=== PATIENT | male | born 1935 | race Caucasian/White ===

== ENCOUNTER → 2016-10-07 | Outpatient (CLI) | payer MEDICARE, OTHER ==
[~2016-10-07] MED LIST: AMBISOME50 MG IV; ASPI325T6 PO; ASPIRIN 32325 MG/TA1 PO; ASPIRIN 32325 MG/TAB PO; ASPIRIN 81M81 MG/TA2 PO; AVODART 0.5MG0.5 MG PO; COLACE 100100 MG/CAP PO; ERAXIS100 MG IV; FERROUS SU325 MG/TAB PO; FISH OIL1000 MG PO; FLOMAX 0.40.4 MG/CAP PO; FLORAJEN A20 Billion PO; FOLIC ACID0.4 MG PO; INVANZ INJ1 G/VIAL IV; LIPITOR 10MG10 MG PO; MASON NATURAL1200 MG PO; METAMUCIL3.4 GM/DOS PO; MULTI VITAMINS1 TAB PO; NORCO 325 MG-7.1 TAB PO; ROXICODONE 55 MG/TAB PO; SENNA-LAX8.6 MG PO; SENOKOT S 50 MG1 TAB PO; ULTRAM 50MG TAB50 MG PO; VITAMIN C500 MG PO; ZYLOPRIM 300MG300 MG PO
[2016-10-07 10:50] LABS: CREATININE, serum 0.99 mg/dL (0.66-1.25)
[2016-10-07 12:44] LABS: 1 HR GLUCOSE 112 mg/dL (90-160); 1/2 HR GLUCOSE 131 mg/dL (100-170)
[2016-10-07 12:45] LABS: 1 HR URINE GLUCOSE NEGATIVE; 1/2 HOUR UR GLUCOSE NEGATIVE; 2 HR URINE GLUCOSE NEGATIVE; FASTING URINE GLUCOSE NEGATIVE
[2016-10-07 13:47] LABS: 3 HR URINE GLUCOSE NEGATIVE
[2016-10-11 11:17] LABS: ALBUMIN FRACTION 4.1 g/dL (2.6-4.5); ALBUMIN PERCENTAGE 62.7 % (48.7-61.8); ALPHA 1 FRACTION 0.3 g/dL (0.3-0.5); ALPHA 1 PERCENTAGE 4.4 % (3.4-8.3); ALPHA 2 FRACTION 0.7 g/dL (0.6-1.2); ALPHA 2 PERCENTAGE 11.3 % (8.4-17.5); BETA 1 FRACTION 0.3 g/dL (0.4-0.6); BETA 2 FRACTION 0.3 g/dL (0.2-0.5); BETA 2 PERCENTAGE 4.3 % (3.8-7.7); GAMMA FRACTION 0.8 g/dL (0.4-1.7); GAMMA PERCENTAGE 12.3 % (8.1-23.0); MONOCLONAL 1 FRACTION 0.2 g/dL (()); SERUM PROTEIN TOTAL 6.5 g/dL (6.0-7.6)
== END ==
LOC: COL.LAB 07:47
PROVIDERS: Psychiatry & Neurology Neurology
DX: G62.9 Polyneuropathy, unspecified (principal)

== ENCOUNTER 2017-08-24 19:22 | Inpatient (IN) | payer MEDICARE, OTHER ==
[2017-08-24] VITALS (40 sets, daily range): BP systolic 101; BP diastolic 54; PULSE 79; TEMP 97.9; O2SAT 92–100
[~2017-08-24] VITALS: Ht 188 cm; Wt 120.0 kg
[2017-08-24] MEDS ORDERED: ASPIRIN 81M81 MG/TA2 PO (19:40)
[2017-08-24] MEDS ORDERED: LIPITOR 10MG10 MG PO (19:41)
[2017-08-24] MEDS ORDERED: ZYLOPRIM 300MG300 MG PO (19:41)
[2017-08-24] MEDS ORDERED: AVODART 0.5MG0.5 MG PO (19:42)
[2017-08-24] MEDS ORDERED: MULTIPLE VITAMI1 CAP PO (19:42)
[2017-08-24] MEDS ORDERED: FLOMAX 0.40.4 MG/CAP PO (19:42)
[2017-08-24] MEDS ORDERED: METAMUCIL3.4 GM/DOS PO (19:44)
[2017-08-24] MEDS ORDERED: MASON NATURAL1200 MG PO (19:44)
[2017-08-24] MEDS ORDERED: K-TAB10 PO (19:44)
[2017-08-24 19:48] LABS: BASO % 0.4 % (0.0-2.0); EOS % 0.2 % (0-4.0); GRAN # 7.7 (1.4-6.5); GRAN % 95.7 % (42.2-75.2); HEMATOCRIT 45.5 % (42.0-52.0); HEMOGLOBIN 16.3 g/dl (13.5-18.0); LYMPH # 0.2 (1.2-3.4); LYMPH % 1.9 % (20.0-51.0); MEAN CELL VOLUME 94 fl (80.0-100.0); MEAN CORPUSCULAR HEMOGLOBIN 34 pg (27.0-31.0); MEAN CORPUSCULAR HGB CONC 36 g/dl (33.0-37.0); MEAN PLATELET VOLUME 9.5 fl (7.4-10.4); MONO # 0.1 (0.1-0.6); MONO % 1.4 % (1.7-9.3); PLATELET COUNT 150 K/mm3 (130-400); RED BLOOD COUNT 4.83 M/mm3 (4.20-5.60); REDCELL DISTRIBUTION WIDTH-CV 13.2 % (11.5-14.5)
[2017-08-24 19:58] LABS: ALBUMIN 3.9 gm/dL (3.5-5.0); BILIRUBIN,TOTAL 4.6 mg/dL (0.0-1.0); CALCIUM 8.9 mg/dL (8.4-10.2); CREATININE, serum 0.98 mg/dL (0.66-1.25); TOTAL PROTEIN 7.1 gm/dL (6.4-8.2)
[2017-08-24 20:01] LABS: COLLECTION METHOD CLEAN CATCH
[2017-08-24 20:16] LABS: MUCOUS Present /lpf; PH 7 (5-8); SQUAMOUS EPITHELIAL None Seen /hpf; URINE APPEARANCE Hazy; URINE BACTERIA None Seen /hpf; URINE BILIRUBIN Negative (NEGATIVE); URINE BLOOD Negative (NEGATIVE); URINE COLOR Amber; URINE GLUCOSE Negative (NEGATIVE); URINE KETONE Negative (NEGATIVE); URINE LEUKOCYTE ESTERASE Negative (NEGATIVE); URINE NITRATE Negative (NEGATIVE); URINE PROTEIN(semi-quant) Negative (NEGATIVE); URINE RBC 0-2 /hpf
[2017-08-25] VITALS (1006 sets, daily range): BP systolic 97–125; BP diastolic 54–61; PULSE 46–55; TEMP 97–98.2; O2SAT 84–100
[2017-08-25 05:29] LABS: BASO % 0.2 % (0.0-2.0); GRAN # 15.2 (1.4-6.5); GRAN % 90.2 % (42.2-75.2); HEMATOCRIT 40.5 % (42.0-52.0); HEMOGLOBIN 14.1 g/dl (13.5-18.0); LYMPH # 0.7 (1.2-3.4); LYMPH % 4.3 % (20.0-51.0); MEAN CELL VOLUME 97 fl (80.0-100.0); MEAN CORPUSCULAR HEMOGLOBIN 34 pg (27.0-31.0); MEAN CORPUSCULAR HGB CONC 35 g/dl (33.0-37.0); MEAN PLATELET VOLUME 9.7 fl (7.4-10.4); MONO # 0.8 (0.1-0.6); MONO % 4.9 % (1.7-9.3); PLATELET COUNT 147 K/mm3 (130-400); RED BLOOD COUNT 4.19 M/mm3 (4.20-5.60); REDCELL DISTRIBUTION WIDTH-CV 13.7 % (11.5-14.5)
[2017-08-25 05:47] LABS: CALCIUM 7.9 mg/dL (8.4-10.2); CREATININE, serum 1.12 mg/dL (0.66-1.25); POTASSIUM 4.5 mmol/L (3.4-5.0)
[2017-08-26] VITALS (553 sets, daily range): BP systolic 122–128; BP diastolic 60–68; PULSE 55–64; TEMP 99; O2SAT 65–100
[2017-08-26 06:13] LABS: ALBUMIN 2.9 gm/dL (3.5-5.0); BILIRUBIN,TOTAL 6.5 mg/dL (0.0-1.0); CALCIUM 7.7 mg/dL (8.4-10.2); CREATININE, serum 1.14 mg/dL (0.66-1.25); MAGNESIUM 1.9 mg/dL (1.6-2.3); TOTAL PROTEIN 5.7 gm/dL (6.4-8.2)
[2017-08-26 06:15] LABS: MEAN CELL VOLUME 100 fl (80.0-100.0); MEAN CORPUSCULAR HEMOGLOBIN 34 pg (27.0-31.0); MEAN CORPUSCULAR HGB CONC 34 g/dl (33.0-37.0); MEAN PLATELET VOLUME 10.6 fl (7.4-10.4); PLATELET COUNT 129 K/mm3 (130-400); RED BLOOD COUNT 4.11 M/mm3 (4.20-5.60); REDCELL DISTRIBUTION WIDTH-CV 14.2 % (11.5-14.5)
[2017-08-26 08:14] LABS: BAND 2 % (0-10); EOSINOPHIL 2 % (0-4); LYMPHOCYTE 13 % (20.0-51.0); NEUTROPHILS 83 % (42.0-75.2); PLATELET ESTIMATE DECREASED (NORMAL)
[2017-08-26] MEDS ORDERED: K-DUR 10 MEQ T10 MEQ PO (10:20)
[2017-08-26] MEDS ORDERED: CEFTIN500 MG PO (10:22)
== END 2017-08-26 11:20 | disposition home or self-care (01) | DRG 871 ==
LOC: COL.ER 19:22 → ICU 20:25 → EDBEDREQ 21:30 → ICU 08-26 11:20
PROVIDERS: Emergency Medicine; Internal Medicine; Internal Medicine Gastroenterology; Nurse Practitioner
PROC: 0F798DZ Dilation of Common Bile Duct with Intraluminal Device, Via Natural or Artificial Opening Endoscopic (ICD-10-PCS; principal; 2017-08-25 13:00)
DX: A41.89 Other specified sepsis (principal); K83.1 Obstruction of bile duct; K83.0 Cholangitis; K31.5 Obstruction of duodenum; B96.1 Klebsiella pneumoniae [K. pneumoniae] as the cause of diseases classified elsewhere; N20.0 Calculus of kidney; Z87.891 Personal history of nicotine dependence; K26.9 Duodenal ulcer, unspecified as acute or chronic, without hemorrhage or perforation
CPT/HCPCS: 99222-AI; 99239; C1726; C1769; J1885; J2405; J2543; J2704; J7030; J7040; Q9967

== ENCOUNTER → 2017-08-29 | Outpatient (CLI) | payer MEDICARE, OTHER ==
[~2017-08-29] MED LIST changes: +CEFTIN500 MG PO; +K-DUR 10 MEQ T10 MEQ PO; +K-TAB10 PO; +MULTIPLE VITAMI1 CAP PO
[2017-08-29 13:54] LABS: ALBUMIN 3.6 gm/dL (3.5-5.0); BILIRUBIN,TOTAL 3.1 mg/dL (0.0-1.0); CALCIUM 9.1 mg/dL (8.4-10.2); CREATININE, serum 0.96 mg/dL (0.66-1.25); POTASSIUM 4.2 mmol/L (3.4-5.0); TOTAL PROTEIN 7.3 gm/dL (6.4-8.2)
== END ==
LOC: COL.LAB 13:17
PROVIDERS: Internal Medicine
DX: K83.0 Cholangitis (principal)

== ENCOUNTER → 2017-08-30 | Outpatient (CLI) | payer MEDICARE, OTHER ==
[2017-08-30 12:37] LABS: ALBUMIN 3.8 gm/dL (3.5-5.0); BILIRUBIN,TOTAL 2.7 mg/dL (0.0-1.0); CALCIUM 9.2 mg/dL (8.4-10.2); CREATININE, serum 1.02 mg/dL (0.66-1.25); POTASSIUM 4.5 mmol/L (3.4-5.0); TOTAL PROTEIN 7.4 gm/dL (6.4-8.2)
== END ==
LOC: COL.LAB 11:46
PROVIDERS: Internal Medicine Gastroenterology
DX: R17 Unspecified jaundice (principal)

== ENCOUNTER 2017-09-23 10:04 | Day surgery (SDC) | payer MEDICARE, OTHER ==
[~2017-09-23] VITALS: Ht 188 cm; Wt 106.5 kg
[2017-09-23 10:25] VITALS: BP 137/69; PULSE 66; TEMP 97.8
[2017-09-23 11:55] VITALS: BP 134/72; PULSE 75; TEMP 98
[2017-09-23 12:15] VITALS: BP 141/76; PULSE 63
[2017-09-23 12:30] VITALS: BP 137/69; PULSE 61
== END 2017-09-23 12:37 ==
LOC: SDCO 10:04
DX: K83.1 Obstruction of bile duct (principal); K31.5 Obstruction of duodenum; K26.7 Chronic duodenal ulcer without hemorrhage or perforation; K31.9 Disease of stomach and duodenum, unspecified; Z79.82 Long term (current) use of aspirin; Z79.899 Other long term (current) drug therapy
CPT/HCPCS: C1769; J2704; J3010; Q9967

== ENCOUNTER 2018-06-04 10:03 | Emergency (ER) | payer MEDICARE, OTHER ==
[~2018-06-04] VITALS: Ht 188 cm; Wt 115.9 kg
[2018-06-04 10:14] VITALS: TEMP 97.9
[2018-06-04] MEDS ORDERED: LIPITOR 10MG10 MG PO (10:24)
[2018-06-04] MEDS ORDERED: PROTONIX 40MG T40 MG PO (10:26)
[2018-06-04] MEDS ORDERED: METAMUCIL3.4 GM/DOS PO (10:26)
[2018-06-04] MEDS ORDERED: MASON NATURAL2000 IU (10:27)
[2018-06-04 10:51] LABS: BASO # 0.1 (0.0-0.2); BASO % 0.8 % (0.0-2.0); EOS # 0.4 (0.0-0.7); EOS % 5.9 % (0-4.0); GRAN # 3.9 (1.4-6.5); GRAN % 64.2 % (42.2-75.2); HEMATOCRIT 46.3 % (42.0-52.0); HEMOGLOBIN 16.1 g/dl (13.5-18.0); LYMPH # 1.2 (1.2-3.4); LYMPH % 19.9 % (20.0-51.0); MEAN CELL VOLUME 98 fl (80.0-100.0); MEAN CORPUSCULAR HEMOGLOBIN 34 pg (27.0-31.0); MEAN CORPUSCULAR HGB CONC 35 g/dl (33.0-37.0); MEAN PLATELET VOLUME 9.5 fl (7.4-10.4); MONO # 0.6 (0.1-0.6); PLATELET COUNT 184 K/mm3 (130-400); RED BLOOD COUNT 4.71 M/mm3 (4.20-5.60)
[2018-06-04 11:05] LABS: ALANINE AMINOTRANSFERASE 36 U/L (21-72); ALBUMIN 3.8 gm/dL (3.5-5.0); ALKALINE PHOSPHATASE 78 U/L (50-136); ANION GAP 8 mmol/L (7-16); AST,SGOT 32 U/L (15-37); BILIRUBIN,TOTAL 1.8 mg/dL (0.0-1.0); BLOOD UREA NITROGEN 18 mg/dL (9-20); CALCIUM 9.1 mg/dL (8.4-10.2); CARBON DIOXIDE 25 mmol/L (22-30); CHLORIDE 106 mmol/L (98-107); CREATININE, serum 1.05 mg/dL (0.66-1.25); GLUCOSE 98 mg/dL (74-106); LIPASE 153 U/L (23-300); POTASSIUM 4.6 mmol/L (3.4-5.0); SODIUM 139 mmol/L (137-145); TOTAL PROTEIN 6.7 gm/dL (6.4-8.2)
[2018-06-04 11:09] LABS: C-REACTIVE PROTEIN < 0.5 mg/dL (0.0-0.9)
[2018-06-04] MEDS ORDERED: NORCO 325 MG-51 TAB PO (11:25)
[2018-06-04 11:45] VITALS: BP 128/64; PULSE 62
== END 2018-06-04 11:48 | disposition home or self-care (01) ==
LOC: COL.ER 10:03
PROVIDERS: Family Medicine
DX: N20.2 Calculus of kidney with calculus of ureter (principal); Z79.82 Long term (current) use of aspirin; Z90.49 Acquired absence of other specified parts of digestive tract
CPT/HCPCS: J1885; J2270; J2405; J7030

== ENCOUNTER 2018-06-20 14:34 | Day surgery (SDC) | payer MEDICARE, OTHER ==
[~2018-06-20] VITALS: Ht 190.5 cm; Wt 112.3 kg
[~2018-06-20 14:34] MED LIST changes: +FISH OIL 1000MG1 CAP PO; +MASON NATURAL2000 IU PO; +NORCO 325 MG-51 TAB PO; +PROTONIX 40MG T40 MG PO
[2018-06-20] MEDS ORDERED: UROCIT-K 5540 MG/TAB PO (15:30)
[2018-06-20] MEDS ORDERED: B-121000 MCG PO (15:32)
[2018-06-20] MEDS ORDERED: ULTRAM 50MG TAB50 MG PO (15:32)
[2018-06-20 15:46] VITALS: BP 142/73; PULSE 83; TEMP 97.4
[2018-06-20 22:09] VITALS: BP 147/74; PULSE 78; TEMP 97.4
[2018-06-20 22:13] VITALS: BP 152/80; PULSE 79; TEMP 94.5
[2018-06-20 23:30] VITALS: BP 147/82; PULSE 82; TEMP 97.3
== END 2018-06-20 23:40 | disposition home or self-care (01) ==
LOC: SDCO 14:34 → JCC 19:32 → SDCO 23:40
DX: N20.0 Calculus of kidney (principal); N40.1 Benign prostatic hyperplasia with lower urinary tract symptoms; R39.12 Poor urinary stream; E78.5 Hyperlipidemia, unspecified; Z90.49 Acquired absence of other specified parts of digestive tract; M19.90 Unspecified osteoarthritis, unspecified site; G47.33 Obstructive sleep apnea (adult) (pediatric); Z86.14 Personal history of Methicillin resistant Staphylococcus aureus infection; Z96.651 Presence of right artificial knee joint; Z79.82 Long term (current) use of aspirin; Z80.0 Family history of malignant neoplasm of digestive organs; Z83.3 Family history of diabetes mellitus; Z82.49 Family history of ischemic heart disease and other diseases of the circulatory system; Z84.1 Family history of disorders of kidney and ureter
CPT/HCPCS: OP; C1769; C1894; C2617; J0690; J1100; J1885; J2405; J2704; J3010; J7120

== ENCOUNTER → 2020-03-21 | Outpatient (CLI) | payer MEDICARE, OTHER ==
[~2020-03-21] MED LIST changes: +B-121000 MCG PO; +UROCIT-K 5540 MG/TAB PO
== END ==
LOC: COL.RAD 11:16
DX: D47.2 Monoclonal gammopathy (principal); J98.4 Other disorders of lung; M46.1 Sacroiliitis, not elsewhere classified; M16.0 Bilateral primary osteoarthritis of hip; M19.031 Primary osteoarthritis, right wrist; M19.032 Primary osteoarthritis, left wrist; M19.021 Primary osteoarthritis, right elbow; M19.022 Primary osteoarthritis, left elbow; M47.819 Spondylosis without myelopathy or radiculopathy, site unspecified